=== PATIENT | female | born 1985 | race Caucasian/White ===

== ENCOUNTER 2022-10-16 20:11 | Emergency (ER) | payer OTHER ==
[~2022-10-16] VITALS: Ht 177.8 cm; Wt 118.6 kg
[2022-10-16 20:12] VITALS: BP 148/90; TEMP 100; O2SAT 96
[2022-10-16 20:48] LABS: VENOUS BASE EXCESS 2.4 (-2.0-2.0); VENOUS HCO3 27.6 MMOL/L (23.0-27.0); VENOUS O2 SATURATION 66.2 % (60.0-80.0); VENOUS PARTIAL PRESSURE CO2 44.7 mmHg (38.0-50.0); VENOUS PARTIAL PRESSURE O2 32.7 mmHg (30.0-50.0); VENOUS PH 7.408 UNITS (7.330-7.430); VENOUS STANDARD HCO3 25.8 MMOL/L; VENOUS TOTAL CO2 28.9 MMOL/L (24.0-28.0)
[2022-10-16 20:55] LABS: BASO % 0.5 % (0.0-1.0); EOS % 0.1 % (0.0-3.0); HEMATOCRIT 39.7 % (36.0-47.0); HEMOGLOBIN 13.6 g/dl (12.0-15.5); LYMPH # 0.7 10^3/uL (1.5-5.0); LYMPH % 9.5 % (24.0-44.0); MEAN CORPUSCULAR HEMOGLOBIN 28.5 pg (27.0-33.0); MEAN CORPUSCULAR HGB CONC 34.3 g/dl (32.0-36.5); MEAN CORPUSCULAR VOLUME 83.2 fl (80.0-96.0); MONO # 0.5 10^3/uL (0.0-0.8); MONO % 6.5 % (2.0-8.0); NEUTROPHILS # 6.2 10^3/uL (1.5-8.5); NEUTROPHILS % 83.3 % (36.0-66.0); PLATELET COUNT, AUTOMATED 231 10^3/uL (150-450); RED BLOOD COUNT 4.77 10^6/uL (4.00-5.40); WHITE BLOOD COUNT 7.4 10^3/uL (4.0-10.0)
[2022-10-16] MEDS ORDERED: ONDANSETRON 4MG 2ML VIAL IV ONE (21:15)
[2022-10-16] MEDS ORDERED: NS 1,000 ML IV ONE (21:15)
[2022-10-16 21:16] LABS: LIPASE 24 U/L (12-53)
[2022-10-16 21:18] LABS: ALBUMIN 3.7 G/DL (3.2-5.2); ALKALINE PHOSPHATASE 135 U/L (46-116); ALT/SGPT 20 U/L (7.0-40); AST/SGOT 14 U/L (<34); BILIRUBIN,DIRECT 0.2 MG/DL (<0.4); BILIRUBIN,TOTAL 0.8 MG/DL (0.3-1.2); BLOOD UREA NITROGEN 12 MG/DL (9-23); CALCIUM LEVEL 8.6 MG/DL (8.5-10.1); CARBON DIOXIDE LEVEL 26 MMOL/L (20-31); CHLORIDE LEVEL 102 MMOL/L (98-107); CREATININE FOR GFR 0.66 MG/DL (0.55-1.30); GLOMERULAR FILTRATION RATE > 60.0 (>60); GLUCOSE, FASTING 172 MG/DL (60-100); SODIUM LEVEL 137 MMOL/L (136-145); TOTAL PROTEIN 7.3 G/DL (5.7-8.2)
[2022-10-16 21:23] LABS: ACETONE/KETONE 0.14 MMOL/L (0.02-0.27)
[2022-10-16 21:30] LABS: HEMOGLOBIN A1c 6.4 % (4.0-6.0)
[2022-10-16 21:38] LABS: OSMOLALITY SERUM 283 MOSM/KG (275-295)
[2022-10-16] MEDS ORDERED: ONDANSETRON 4MG ORAL DISINTEGRATING TAB PO ONE (22:35)
== END 2022-10-16 23:10 | disposition home or self-care (01) ==
LOC: M ED 20:11
DX: E10.65 Type 1 diabetes mellitus with hyperglycemia (principal); R11.2 Nausea with vomiting, unspecified; Z88.2 Allergy status to sulfonamides; Z88.8 Allergy status to other drugs, medicaments and biological substances; Z20.822 Contact with and (suspected) exposure to COVID-19
CPT/HCPCS: 80047; 80048; 80076; 81001; 82010; 82803; 83036; 83690; 83930; 85025; 87486; 87581; 87633; 87798; 93005; 93041; 94760; 99284; J2405